=== PATIENT | male | born 1960 | race Caucasian/White ===

== ENCOUNTER → 2021-05-20 10:03 | Outpatient (BNVA) | payer OTHER, SELFPAY | PROVIDERS: Family Provider Family Medicine; PCP Family Medicine; Visit Provider Nurse Practitioner Family | DX: N39.0 Urinary tract infection, site not specified (principal); R31.9 Hematuria, unspecified | CPT/HCPCS: 81000; 87086 ==

== ENCOUNTER 2021-05-26 13:04 | Emergency (ER) | payer OTHER, SELFPAY ==
[2021-05-26 13:09] VITALS: BP 127/85; PULSE 87; RESP 18; TEMP 36.9; O2SAT 95; BMI 30.1
--- NOTE | 2021-05-26 13:38 | ED_ITS ---
Documented by User: EDITH Kirkpatrick 05/27/21 07:03 HPI - COVID General: Chief Complaint: COVID symptoms Stated Complaint: WEAKNESS VOMITING/ NAUSEA Time Seen by Provider: 05/26/21 13:25 Triage information: Has fever, cough or shortness of breath . Exposure to COVID + person last 14 days History of Present Illness: HPI Narrative: Patient is a 60-year-old male who comes to the ED with nausea vomiting diarrhea. Patient started developing symptoms back on Friday, May 22. His nausea vomiting and diarrhea really got worse on Friday. he cannot keep any food or drink down currently. Even drinking water causes nausea and emesis. He also reports having some diarrhea daily but only about 1 time a day. He feels like he is really dry and dehydrated. He has had a fever as well for the past couple days that he treats with Tylenol and/or Motrin. He also endorses a mild cough that is dry nonproductive. He endorses some very mild generalized lower abdominal pain. COVID 19 common symptoms: positive fever(s), non-productive cough, nausea, vomiting and diarrhea; negative chills, productive cough, dyspnea, fatigue, headache(s), throat pain or nasal congestion COVID 19 other sytmptoms: negative chest pain COVID Results: SARS-CoV-2 Antigen (Rapid) Negative (Negative) 05/26/21 13:58 05/26/21 Review of Systems Const: Reports: fever(s); Denies: chills or fatigue Eyes: Denies: change in vision or eye discomfort ENMT: Denies: throat pain, odynophagia, nasal discharge or nasal congestion Card: Denies: chest pain, palpitations, edema, swelling of feet/ankles, dyspnea on exertion or orthopnea Resp: Reports: non-productive cough; Denies: dyspnea or productive cough GI: Reports: abdominal pain, nausea, vomiting and diarrhea; Denies: constipation or hematochezia : Denies: flank pain, difficulty urinating, dysuria or hematuria Musc: Denies: neck pain, back pain or extremity swelling Skin/Breast: Denies: rash or new lesions Neuro: Denies: headache(s), numbness in extremities or weakness in extremities [facility] ED PFSH: Medical History Chronic epididymitis Social History Smoking and tobacco status: current every day smoker (cigars) cigars Cigars smoked per week: 21 Alcohol intake: current Alcohol intake frequency: holidays/special occasions only Marital status: Number of children: 3 Number of grandchildren: 3 Current occupational status: employed Physical Exam Const: COMMON NORMALS: no acute distress, patient oriented x3 and alert GENERAL APPEARANCE: cooperative and comfortable HENMT: COMMON NORMALS: normocephalic HEAD & SCALP: normocephalic MOUTH: moist mucous membranes abnormal Details: parched THROAT: posterior oropharynx normal and uvula midline Neck/C-Spine: COMMON NORMALS: supple GENERAL: Yes normal visual inspection Resp: COMMON NORMALS: normal respiratory effort, No retractions, No use of accessory muscles and clear to auscultation bilaterally AUSCULTATION: clear to auscultation bilaterally Cardio: COMMON NORMALS: regular rate, regular rhythm, S1 normal heart sound present, S2 normal heart sound present, No gallops present (Cardio), No clicks present (Cardio), No murmurs present (Cardio) and Peripheral pulses 2+ throughout RATE: regular rate RHYTHM: regular rhythm HEART SOUNDS: S1 normal heart sound present and S2 normal heart sound present PERIPHERAL PULSES: Peripheral pulses 2+ throughout GI: COMMON NORMALS: Normal to inspection, nondistended, normoactive bowel sounds present, Soft to palpation and no masses PALPATION: Yes Soft to palpation and Yes Tenderness to palpation present (GI) (Generalized bilateral lower abdominal tenderness) Details: LLQ and RLQ : COMMON NORMALS: Yes no CVA tenderness BLADDER/KIDNEY EXAM: Yes no CVA tenderness Back/Pelvis: COMMON NORMALS: no CVA tenderness Extremity: COMMON NORMALS: normal to inspection Neuro: COMMON NORMALS: patient oriented x3 and moves all extremities SENSORIUM/ORIENTATION: Yes alert Skin: GENERAL SKIN EXAM: dry skin Course Vital Signs: Vital signs: Vital Signs Temperature 98.4 F 05/26/21 13:09 Pulse Rate 85 05/26/21 18:59 Respiratory Rate 17 05/26/21 18:59 Blood Pressure 130/80 05/26/21 18:59 Pulse Oximetry 97 05/26/21 18:59 MDM - COVID Lab Data: Attestation: I reviewed the patient's lab results. Labs: Lab Results 05/26/21 05/26/21 05/26/21 Range/Units 13:50 13:56 13:56 WBC 9.9 (4.0-10.0) 10^3/ uL RBC 5.58 H (4.1-5.3) 10^6/u L Hgb 15.6 (11.7-16.6) g/dL Hct 48.7 (42.0-52.0) % MCV 87.3 (80-94) fL MCH 28.0 (28.0-34.0) pg MCHC 32.0 (30.0-36.0) g/dL RDW 13.9 (12.1-15.1) % Plt Count 221 (130-400) 10^3/c mm MPV 12.0 H (7.4-10.4) fL Neut % (Auto) 74.6 % Lymph % (Auto) 18.2 % [place] % (Auto) 5.7 % Eos % (Auto) 0.4 % Baso % (Auto) 0.6 % Neut # (Auto) 7.40 (1.8-7.7) 10^3/u L Lymph # (Auto) 1.8 (0.8-4.8) 10^3/u L [place] # (Auto) 0.6 (0.2-0.9) 10^3/u L Eos # (Auto) 0.0 (0.0-0.8) 10^3/u L Baso # (Auto) 0.1 (0.0-0.1) 10^3/u L Nucleated RBC % (a uto) 0 % Nucleated RBCs # 0.0 /100WBC Sodium 133 L (136-145) mmol/L Potassium 4.4 (3.5-5.1) mmol/L Chloride 97 L (98-107) mmol/L Carbon Dioxide 24 (22-29) mmol/L Anion Gap 16.4 (5-19) BUN 13 (8-23) mg/dL Creatinine 1.3 H (0.7-1.2) mg/dL GFR Calculation 56.1 L (90-130) mL/min Glucose 101 (65-115) mg/dL Calculated Osmolal ity 276 L (285-295) mOsm/k g Lactic Acid 1.6 (0.5-2.2) mmol/L Calcium 9.1 (8.5-10.5) mg/dL Total Bilirubin 0.4 (0.15-1.2) mg/dL AST 38 (0-40) U/L ALT 52 H (0-41) U/L Alkaline Phosphata se 99 (40-130) IU/L Total Protein 7.4 (6.6-8.7) g/dL Albumin 3.8 (3.5-5.2) g/dL Globulin 3.6 (1.3-4.6) g/dL Lipase 18 (13-60) U/L Urine Color (Yellow) Urine Appearance (CLEAR) Urine pH (5-7) Ur Specific Gravit y (1.005-1.030) Urine Protein (Negative) Urine Glucose (UA) (Normal) Urine Ketones (Negative) Urine Blood (Negative) Urine Nitrate (Negative) Urine Bilirubin (Negative) Urine Urobilinogen (Negative) mg/dL Ur Leukocyte Yvonne ase (Negative) Urine RBC (0-2) /hpf Urine WBC (0-5) /hpf Ur Squamous Epith Cells (0-5) /hpf Amorphous Sediment Urine Bacteria (NONE) /hpf SARS-CoV-2 Ag (Rap id) (Negative) 05/26/21 05/26/21 Range/Units 13:58 15:28 WBC (4.0-10.0) 10^3/ uL RBC (4.1-5.3) 10^6/u L Hgb (11.7-16.6) g/dL Hct (42.0-52.0) % MCV (80-94) fL MCH (28.0-34.0) pg MCHC (30.0-36.0) g/dL RDW (12.1-15.1) % Plt Count (130-400) 10^3/c mm MPV (7.4-10.4) fL Neut % (Auto) % Lymph % (Auto) % [place]ville % (Auto) % Eos % (Auto) % Baso % (Auto) % Neut # (Auto) (1.8-7.7) 10^3/u L Lymph # (Auto) (0.8-4.8) 10^3/u L [place] # (Auto) (0.2-0.9) 10^3/u L Eos # (Auto) (0.0-0.8) 10^3/u L Baso # (Auto) (0.0-0.1) 10^3/u L Nucleated RBC % (a uto) % Nucleated RBCs # /100WBC Sodium (136-145) mmol/L Potassium (3.5-5.1) mmol/L Chloride (98-107) mmol/L Carbon Dioxide (22-29) mmol/L Anion Gap (5-19) BUN (8-23) mg/dL Creatinine (0.7-1.2) mg/dL GFR Calculation (90-130) mL/min Glucose (65-115) mg/dL Calculated Osmolal ity (285-295) mOsm/k g Lactic Acid (0.5-2.2) mmol/L Calcium (8.5-10.5) mg/dL Total Bilirubin (0.15-1.2) mg/dL AST (0-40) U/L ALT (0-41) U/L Alkaline Phosphata se (40-130) IU/L Total Protein (6.6-8.7) g/dL Albumin (3.5-5.2) g/dL Globulin (1.3-4.6) g/dL Lipase (13-60) U/L Urine Color Dark yellow (Yellow) Urine Appearance Sl hazy (CLEAR) Urine pH 5 (5-7) Ur Specific Gravit y 1.025 (1.005-1.030) Urine Protein Trace (Negative) Urine Glucose (UA) Norm (Normal) Urine Ketones 1+ H (Negative) Urine Blood 3+ H (Negative) Urine Nitrate Negative (Negative) Urine Bilirubin 1+ H (Negative) Urine Urobilinogen 1 H (Negative) mg/dL Ur Leukocyte Yvonne ase Trace H (Negative) Urine RBC 50-80 H (0-2) /hpf Urine WBC 5-10 H (0-5) /hpf Ur Squamous Epith Cells None (0-5) /hpf Amorphous Sediment Not Reportable Urine Bacteria 2+ H (NONE) /hpf SARS-CoV-2 Ag (Rap id) Negative (Negative) Imaging Data: CT Abd/Pel: Attestation: I personally reviewed and interpreted this imaging study as follows: Radiologist's impression: [id number] [place] [address] CT Scan Report Signed Patient: Jonh Hager Unit #: [id number] : 1960 Age/Sex: 60 / M ADM Date: 05/26/21 Loc: ER Room/Bed: Attending Dr: Ordering Provider/Ordering MD: Anthony Mandujano Date of Service: 05/26/21 Procedure(s): CT abdomen pelvis w con* [id number] Accession Number(s): [id number] Report Number: [id number] PROCEDURE INFORMATION: Exam: CT Abdomen And Pelvis With Contrast Exam date and time: 05/26/2021 2:47 PM Age: 60 years old Clinical indication: Fever and nausea and vomiting; Patient HX: C/O n/v/d and fever; Additional info: N/v with generalized lower abdom tenderness TECHNIQUE: Imaging protocol: Computed tomography of the abdomen and pelvis with contrast. Radiation optimization: All CT scans at this facility use at least one of these dose optimization techniques: automated exposure control; mA and/or kV adjustment per patient size (includes targeted exams where dose is matched to clinical indication); or iterative reconstruction. Contrast material: VISI 320; Contrast volume: 95 ml; Contrast route: INTRAVENOUS (IV); COMPARISON: CR (CHEST, ) 05/26/2021 2:13 PM RADIATION DOSE METRICS: Total DLP (mGy-cm): 1738.99 FINDINGS: Lungs: Mild atelectasis at the left lung base. Pleural spaces: There is an oval-shaped pleural based mass-like density in the posterior aspect of the right lung base measuring 5.7 x 2.6 cm. The central portion of this density measures fluid density. There is a thin rim of soft tissue density surrounding. This may represent a necrotic pulmonary mass versus infectious process. Liver: Decreased hepatic density is noted, consistent with hepatic steatosis. Gallbladder and bile ducts: No calcified stones. No ductal dilation. Pancreas: The pancreas is normal in appearance. No pancreatic duct dilatation. Spleen: The spleen is normal in size and appearance. Adrenal glands: The adrenal glands appear within normal limits. Kidneys and ureters: 1.7 cm simple appearing right renal cyst. No solid renal masses. No hydronephrosis. Normal bilateral ureters. Stomach and bowel: The stomach is unremarkable in appearance. The small bowel is unremarkable as demonstrated. Diverticulosis of the sigmoid colon. No evidence of acute diverticulitis. Appendix: The appendix is normal in appearance. No evidence of appendicitis. Intraperitoneal space: No pneumoperitoneum. No significant fluid collection. Vasculature: Abdominal aorta is diffusely atherosclerotic. Aorta measures up to 2.6 cm in diameter. Lymph nodes: No pathologically enlarged lymph nodes are demonstrated. Urinary bladder: The urinary bladder is unremarkable in appearance. Reproductive: Unremarkable as visualized. Bones/joints: Scoliosis and degeneration of the lumbar spine. Soft tissues: The soft tissues appear unremarkable. CT/CT abdomen pelvis w con* [id number] IMPRESSION: 1. There is an oval-shaped pleural based mass-like density in the posterior aspect of the right lung base measuring 5.7 x 2.6 cm. The central portion of this density measures fluid density. There is a thin rim of soft tissue density surrounding. This may represent a necrotic pulmonary mass versus infectious process. Consider pulmonary consultation and possible aspiration. 2. Decreased hepatic density is noted, consistent with hepatic steatosis. 3. Diverticulosis of the sigmoid colon. No evidence of acute diverticulitis. 4. No acute abnormality demonstrated in the abdomen and pelvis. COMMENTS: Consistent with the [employer]'s Incidental Findings Committee white paper (J Am Kyle Radiol 2018): Any incidental renal lesion less than 1 cm or classified as too small to characterize, or any incidental cystic renal lesion characterized as simple-appearing, is likely benign. No follow-up imaging is recommended for these lesions per consensus recommendations based on imaging criteria. Radiation Dose CTDIVOL = (mGy): DLP = 1738.99 (mGy-cm) Dictated By: Bong Tubbs MD Signed By: Bong Tubbs MD Signed Date/Time: 05/26/21 1636 DD/ 1634 COVID Results: SARS-CoV-2 Antigen (Rapid) Negative (Negative) 05/26/21 13:58 05/26/21 Discharge Plan Discharge Patient Disposition: Home Clinical Impression: Gastroenteritis Condition: Stable Prescriptions: New levofloxacin 750 mg tablet 750 mg PO DAILY 14 Days Qty: 14 RF: 0 ondansetron 4 mg tablet,disintegrating 4 mg PO Q8H 4 Days Qty: 12 RF: 0 No Action sulfamethoxazole-trimethoprim 800-160 mg tablet 1 tab PO BID Qty: 60 RF: 0 ibuprofen 200 mg Tablet 200 - 400 mg PO Q4H PRN (Reason: PAIN/FEVER) RF: 0 Tylenol 325 - 650 mg PO Q4H PRN (Reason: PAIN/FEVER) RF: 0 Discharge Orders: Discharge ED (Routine); Ordered 05/26/21 Ordered By: Wood Aldana Referrals: Julia Falcon, DO [Primary Care Provider] - Discharge Diet: Advance as tolerated Discharge Activity: Resume usual activity Patient Instructions: Lump/Mass, Gastroenteritis (ED), Opioid Safety Activity Restrictions/Additional Instructions: You came in with nausea vomiting and diarrhea and have been hydrated and feels somewhat better. We have also noticed incidentally that there is a 2 inch x 1 inch mass in the bottom of your right lung that was caught on your belly CT. I attempted to admit you here however we do not have CT surgery and pulmonary available this weekend and you have refused transfer to a facility that has those specialties available. In that case since your vitals are stable we can send you home with levofloxacin. Take it once daily for 2 weeks and follow-up with CT surgery and gas fitter helper as well as primary care physician next week. I have placed a case management referral to help you get an appointment with these doctors. Return to the ER at anytime with worsening symptoms. Call us Friday if you have not heard anything about your appointments. Coding Level of Care Code ED Validation Scientist for Chg Fwd Exam Comprehensive Documented by User: Wood Aldana MD 05/26/21 18:47 HPI - COVID General: Chief Complaint: COVID symptoms Stated Complaint: WEAKNESS VOMITING/ NAUSEA Time Seen by Provider: 05/26/21 13:25 COVID Results: SARS-CoV-2 Antigen (Rapid) Negative (Negative) 05/26/21 13:58 05/26/21 PFS ED PFSH: Medical History Chronic epididymitis Social History Smoking and tobacco status: current every day smoker (cigars) cigars Cigars smoked per week: 21 Alcohol intake: current Alcohol intake frequency: holidays/special occasions only Marital status: Number of children: 3 Number of grandchildren: 3 Current occupational status: employed Course Vital Signs: Vital signs: Vital Signs Temperature 98.4 F 05/26/21 13:09 Pulse Rate 85 05/26/21 18:59 Respiratory Rate 17 05/26/21 18:59 Blood Pressure 130/80 05/26/21 18:59 Pulse Oximetry 97 05/26/21 18:59 MDM - COVID MDM Narrative: Medical decision making narrative: Took over from Mr. Mandujano. The patient presents with gastroenteritis symptoms which are not terribly concerning and he was rehydrated. Incidentally he has a 2 inch x 1 inch right lower lung mass possible abscess versus cancerous process. I discussed with the hospitalist who recommended transfer because we have no CT surgery or pulmonary available this weekend. I offered the patient transfer and he refused that saying he feels fine and wants to go home. Since his vitals are stable I feel comfortable discharging him with levofloxacin. He will return to the ER at anytime with worsening symptoms and I have placed a case management referral to get him follow-up with PCP, pulmonary, CT surgery next week. He will call Friday if he has not heard anything about his appointments. He understands there is a possibility this could be a cancerous process and earlier diagnosis and treatment leads to better prognosis. He will follow the plan accordingly Lab Data: Labs: Lab Results 05/26/21 05/26/21 05/26/21 Range/Units 13:50 13:56 13:56 WBC 9.9 (4.0-10.0) 10^3/ uL RBC 5.58 H (4.1-5.3) 10^6/u L Hgb 15.6 (11.7-16.6) g/dL Hct 48.7 (42.0-52.0) % MCV 87.3 (80-94) fL MCH 28.0 (28.0-34.0) pg MCHC 32.0 (30.0-36.0) g/dL RDW 13.9 (12.1-15.1) % Plt Count 221 (130-400) 10^3/c mm MPV 12.0 H (7.4-10.4) fL Neut % (Auto) 74.6 % Lymph % (Auto) 18.2 % [place] % (Auto) 5.7 % Eos % (Auto) 0.4 % Baso % (Auto) 0.6 % Neut # (Auto) 7.40 (1.8-7.7) 10^3/u L Lymph # (Auto) 1.8 (0.8-4.8) 10^3/u L [place] # (Auto) 0.6 (0.2-0.9) 10^3/u L Eos # (Auto) 0.0 (0.0-0.8) 10^3/u L Baso # (Auto) 0.1 (0.0-0.1) 10^3/u L Nucleated RBC % (a uto) 0 % Nucleated RBCs # 0.0 /100WBC Sodium 133 L (136-145) mmol/L Potassium 4.4 (3.5-5.1) mmol/L Chloride 97 L (98-107) mmol/L Carbon Dioxide 24 (22-29) mmol/L Anion Gap 16.4 (5-19) BUN 13 (8-23) mg/dL Creatinine 1.3 H (0.7-1.2) mg/dL GFR Calculation 56.1 L (90-130) mL/min Glucose 101 (65-115) mg/dL Calculated Osmolal ity 276 L (285-295) mOsm/k g Lactic Acid 1.6 (0.5-2.2) mmol/L Calcium 9.1 (8.5-10.5) mg/dL Total Bilirubin 0.4 (0.15-1.2) mg/dL AST 38 (0-40) U/L ALT 52 H (0-41) U/L Alkaline Phosphata se 99 (40-130) IU/L Total Protein 7.4 (6.6-8.7) g/dL Albumin 3.8 (3.5-5.2) g/dL Globulin 3.6 (1.3-4.6) g/dL Lipase 18 (13-60) U/L Urine Color (Yellow) Urine Appearance (CLEAR) Urine pH (5-7) Ur Specific Gravit y (1.005-1.030) Urine Protein (Negative) Urine Glucose (UA) (Normal) Urine Ketones (Negative) Urine Blood (Negative) Urine Nitrate (Negative) Urine Bilirubin (Negative) Urine Urobilinogen (Negative) mg/dL Ur Leukocyte Yvonne ase (Negative) Urine RBC (0-2) /hpf Urine WBC (0-5) /hpf Ur Squamous Epith Cells (0-5) /hpf Amorphous Sediment Urine Bacteria (NONE) /hpf SARS-CoV-2 Ag (Rap id) (Negative) 05/26/21 05/26/21 Range/Units 13:58 15:28 WBC (4.0-10.0) 10^3/ uL RBC (4.1-5.3) 10^6/u L Hgb (11.7-16.6) g/dL Hct (42.0-52.0) % MCV (80-94) fL MCH (28.0-34.0) pg MCHC (30.0-36.0) g/dL RDW (12.1-15.1) % Plt Count (130-400) 10^3/c mm MPV (7.4-10.4) fL Neut % (Auto) % Lymph % (Auto) % [place] % (Auto) % Eos % (Auto) % Baso % (Auto) % Neut # (Auto) (1.8-7.7) 10^3/u L Lymph # (Auto) (0.8-4.8) 10^3/u L [place] # (Auto) (0.2-0.9) 10^3/u L Eos # (Auto) (0.0-0.8) 10^3/u L Baso # (Auto) (0.0-0.1) 10^3/u L Nucleated RBC % (a uto) % Nucleated RBCs # /100WBC Sodium (136-145) mmol/L Potassium (3.5-5.1) mmol/L Chloride (98-107) mmol/L Carbon Dioxide (22-29) mmol/L Anion Gap (5-19) BUN (8-23) mg/dL Creatinine (0.7-1.2) mg/dL GFR Calculation (90-130) mL/min Glucose (65-115) mg/dL Calculated Osmolal ity (285-295) mOsm/k g Lactic Acid (0.5-2.2) mmol/L Calcium (8.5-10.5) mg/dL Total Bilirubin (0.15-1.2) mg/dL AST (0-40) U/L ALT (0-41) U/L Alkaline Phosphata se (40-130) IU/L Total Protein (6.6-8.7) g/dL Albumin (3.5-5.2) g/dL Globulin (1.3-4.6) g/dL Lipase (13-60) U/L Urine Color Dark yellow (Yellow) Urine Appearance Sl hazy (CLEAR) Urine pH 5 (5-7) Ur Specific Gravit y 1.025 (1.005-1.030) Urine Protein Trace (Negative) Urine Glucose (UA) Norm (Normal) Urine Ketones 1+ H (Negative) Urine Blood 3+ H (Negative) Urine Nitrate Negative (Negative) Urine Bilirubin 1+ H (Negative) Urine Urobilinogen 1 H (Negative) mg/dL Ur Leukocyte Yvonne ase Trace H (Negative) Urine RBC 50-80 H (0-2) /hpf Urine WBC 5-10 H (0-5) /hpf Ur Squamous Epith Cells None (0-5) /hpf Amorphous Sediment Not Reportable Urine Bacteria 2+ H (NONE) /hpf SARS-CoV-2 Ag (Rap id) Negative (Negative) COVID Results: SARS-CoV-2 Antigen (Rapid) Negative (Negative) 05/26/21 13:58 05/26/21 Discharge Plan Discharge Patient Disposition: Home Clinical Impression: Gastroenteritis Condition: Stable Prescriptions: New levofloxacin 750 mg tablet 750 mg PO DAILY 14 Days Qty: 14 RF: 0 ondansetron 4 mg tablet,disintegrating 4 mg PO Q8H 4 Days Qty: 12 RF: 0 No Action sulfamethoxazole-trimethoprim 800-160 mg tablet 1 tab PO BID Qty: 60 RF: 0 ibuprofen 200 mg Tablet 200 - 400 mg PO Q4H PRN (Reason: PAIN/FEVER) RF: 0 Tylenol 325 - 650 mg PO Q4H PRN (Reason: PAIN/FEVER) RF: 0 Discharge Orders: Discharge ED (Routine); Ordered 05/26/21 Ordered By: Wood Aldana Referrals: Julia Falcon DO [Primary Care Provider] - Discharge Diet: Advance as tolerated Discharge Activity: Resume usual activity Patient Instructions: Lump/Mass, Gastroenteritis (ED), Opioid Safety Activity Restrictions/Additional Instructions: You came in with nausea vomiting and diarrhea and have been hydrated and feels somewhat better. We have also noticed incidentally that there is a 2 inch x 1 inch mass in the bottom of your right lung that was caught on your belly CT. I attempted to admit you here however we do not have CT surgery and pulmonary available this weekend and you have refused transfer to a facility that has those specialties available. In that case since your vitals are stable we can send you home with levofloxacin. Take it once daily for 2 weeks and follow-up with CT surgery and gas fitter helper as well as primary care physician next week. I have placed a case management referral to help you get an appointment with these doctors. Return to the ER at anytime with worsening symptoms. Call us Friday if you have not heard anything about your appointments. Coding Level of Care Code ED Validation Scientist for Maximilian Fwjaycob Exam Comprehensive
--- NOTE | 2021-05-26 13:47 | XRR_ITS ---
PROCEDURE INFORMATION: Exam: XR Chest Exam date and time: 05/26/2021 1:47 PM Age: 60 years old Clinical indication: Pain; On breathing; Additional info: N/v TECHNIQUE: Imaging protocol: XR of the chest. Views: 1 view. COMPARISON: CT abdomen and pelvis dated 05/26/2021 FINDINGS: Lungs: No consolidative infiltrates demonstrated. Known mass-like pleural based 6 x 3 cm right lower lobe pulmonary density seen on CT abdomen study of 05/26/2021 is not demonstrated radiographically. Pleural spaces: No pleural effusion or pneumothorax noted. Heart/Mediastinum: No cardiomegaly. Bones/joints: Mild degenerative thoracic spine changes. XR/XR chest 1V portable [id number] IMPRESSION: 1. No consolidative infiltrates demonstrated. 2. Please see CT abdomen pelvis report from 05/26/2021 for further details.
[2021-05-26] MEDS: ondansetron 2 mg/ML SDV 2 mL 4 MG IVP (13:54)
[2021-05-26] MEDS: sodium chloride 0.9% 1,000 ML 999 ML IV ×2 (13:55→15:26)
[2021-05-26 14:00] VITALS: O2SAT 96
[2021-05-26 14:01] VITALS: BP 133/79; PULSE 90; RESP 16; O2SAT 96
[2021-05-26 14:04] LABS: Basophils # 0.1 10^3/uL (0.0-0.1); Basophils % 0.6 %; Eosinophils % 0.4 %; Hematocrit 48.7 % (42.0-52.0); Hemoglobin 15.6 g/dL (11.7-16.6); Lymphocytes # 1.8 10^3/uL (0.8-4.8); Lymphocytes % 18.2 %; Mean Corpuscular Volume 87.3 fL (80-94); Monocytes # 0.6 10^3/uL (0.2-0.9); Monocytes % 5.7 %; Neutrophils % 74.6 %; Nucleated Red Blood Cells % 0 %; Platelet Count 221 10^3/cmm (130-400); Red Blood Count 5.58 10^6/uL (4.1-5.3); Red Cell Distribution Width 13.9 % (12.1-15.1); White Blood Count 9.9 10^3/uL (4.0-10.0)
[2021-05-26 14:20] LABS: Alanine Aminotransferase 52 U/L (0-41); Albumin Level 3.8 g/dL (3.5-5.2); Alkaline Phosphatase 99 IU/L (40-130); Aspartate Amino Transferase 38 U/L (0-40); Blood Urea Nitrogen 13 mg/dL (8-23); Calcium 9.1 mg/dL (8.5-10.5); Carbon Dioxide 24 mmol/L (22-29); Chloride 97 mmol/L (98-107); Globulin 3.6 g/dL (1.3-4.6); Glomerular Filtration Rate 56.1 mL/min (90-130); Glucose 101 mg/dL (65-115); Lipase 18 U/L (13-60); Osmolality Calculated 276 mOsm/kg (285-295); Sodium 133 mmol/L (136-145); Total Bilirubin 0.4 mg/dL (0.15-1.2); Total Protein 7.4 g/dL (6.6-8.7)
[2021-05-26 14:26] LABS: SARS Covid-2 Antigen Negative (Negative)
[2021-05-26 14:34] LABS: Anion Gap 16.4 (5-19); Potassium 4.4 mmol/L (3.5-5.1)
--- NOTE | 2021-05-26 14:47 | CTR_ITS ---
PROCEDURE INFORMATION: Exam: CT Abdomen And Pelvis With Contrast Exam date and time: 05/26/2021 2:47 PM Age: 60 years old Clinical indication: Fever and nausea and vomiting; Patient HX: C/O n/v/d and fever; Additional info: N/v with generalized lower abdom tenderness TECHNIQUE: Imaging protocol: Computed tomography of the abdomen and pelvis with contrast. Radiation optimization: All CT scans at this facility use at least one of these dose optimization techniques: automated exposure control; mA and/or kV adjustment per patient size (includes targeted exams where dose is matched to clinical indication); or iterative reconstruction. Contrast material: VISI 320; Contrast volume: 95 ml; Contrast route: INTRAVENOUS (IV); COMPARISON: CR (CHEST, ) 05/26/2021 2:13 PM RADIATION DOSE METRICS: Total DLP (mGy-cm): 1738.99 FINDINGS: Lungs: Mild atelectasis at the left lung base. Pleural spaces: There is an oval-shaped pleural based mass-like density in the posterior aspect of the right lung base measuring 5.7 x 2.6 cm. The central portion of this density measures fluid density. There is a thin rim of soft tissue density surrounding. This may represent a necrotic pulmonary mass versus infectious process. Liver: Decreased hepatic density is noted, consistent with hepatic steatosis. Gallbladder and bile ducts: No calcified stones. No ductal dilation. Pancreas: The pancreas is normal in appearance. No pancreatic duct dilatation. Spleen: The spleen is normal in size and appearance. Adrenal glands: The adrenal glands appear within normal limits. Kidneys and ureters: 1.7 cm simple appearing right renal cyst. No solid renal masses. No hydronephrosis. Normal bilateral ureters. Stomach and bowel: The stomach is unremarkable in appearance. The small bowel is unremarkable as demonstrated. Diverticulosis of the sigmoid colon. No evidence of acute diverticulitis. Appendix: The appendix is normal in appearance. No evidence of appendicitis. Intraperitoneal space: No pneumoperitoneum. No significant fluid collection. Vasculature: Abdominal aorta is diffusely atherosclerotic. Aorta measures up to 2.6 cm in diameter. Lymph nodes: No pathologically enlarged lymph nodes are demonstrated. Urinary bladder: The urinary bladder is unremarkable in appearance. Reproductive: Unremarkable as visualized. Bones/joints: Scoliosis and degeneration of the lumbar spine. Soft tissues: The soft tissues appear unremarkable. CT/CT abdomen pelvis w con* [id number] IMPRESSION: 1. There is an oval-shaped pleural based mass-like density in the posterior aspect of the right lung base measuring 5.7 x 2.6 cm. The central portion of this density measures fluid density. There is a thin rim of soft tissue density surrounding. This may represent a necrotic pulmonary mass versus infectious process. Consider pulmonary consultation and possible aspiration. 2. Decreased hepatic density is noted, consistent with hepatic steatosis. 3. Diverticulosis of the sigmoid colon. No evidence of acute diverticulitis. 4. No acute abnormality demonstrated in the abdomen and pelvis. COMMENTS: Consistent with the [employer]'s Incidental Findings Committee white paper (J Am Kyle Radiol 2018): Any incidental renal lesion less than 1 cm or classified as too small to characterize, or any incidental cystic renal lesion characterized as simple-appearing, is likely benign. No follow-up imaging is recommended for these lesions per consensus recommendations based on imaging criteria. Radiation Dose CTDIVOL = (mGy): DLP = 1738.99 (mGy-cm)
[2021-05-26 15:40] LABS: Bilirubin Urine 1+ (Negative); Blood Urine 3+ (Negative); Glucose Urine UA Norm (Normal); Ketones Urine 1+ (Negative); Nitrate Urine Negative (Negative); Protein Urine Trace (Negative); Specific Gravity, Urine 1.025 (1.005-1.030); Urine Appearance SL Hazy (CLEAR); Urine Color Dark Yellow (Yellow); Urobilinogen Urine 1 mg/dL (Negative); pH Urine 5 (5-7)
[2021-05-26 15:41] LABS: Leukocyte Esterase Urine Trace (Negative)
[2021-05-26 15:46] LABS: RBC Urine 50-80 /hpf (0-2)
[2021-05-26 15:47] LABS: Add Urine Culture? Yes; Bacteria Urine 2+ /hpf
[2021-05-26] MEDS: iodixanol 320 mg/mL 100mL Btl IV (15:54)
[2021-05-26] MEDS: metoclopramide 5 mg/mL SDV 2 mL 10 MG IVP (17:51)
[2021-05-26] MEDS: morphine 4 mg/mL SDV 1 mL IVP (17:51)
[2021-05-26 17:55] VITALS: BP 126/83; PULSE 82; RESP 15; O2SAT 95
[2021-05-26 17:56] LABS: Lactic Sepsis W/Reflex 1.6 mmol/L (0.5-2.2)
[2021-05-26 18:59] VITALS: BP 130/80; PULSE 85; RESP 17; O2SAT 97
--- NOTE | 2021-05-29 14:56 | DCPLANNER ---
manager telecom had message to schedule a follow up appointment for patient with pulmonology. manager telecom called [facility], spoke with Miranda, gave clinic patients information. A follow up appointment was scheduled for Friday, May 30, 2021 at 12:[address] Panchal. manager telecom called patients and gave patients the appointment information.
--- NOTE | 2021-07-12 11:34 | DCPLANNER ---
mouna had a follow up appointment scheduled for 05.30.21 with [facility] - patient did attend appointment.
== END 2021-05-26 19:02 | disposition home or self-care (01) ==
PROVIDERS: Physician Assistant; Emergency Provider Family Medicine; PCP Family Medicine
DX: K52.9 Noninfective gastroenteritis and colitis, unspecified (principal); F17.210 Nicotine dependence, cigarettes, uncomplicated; Z20.822 Contact with and (suspected) exposure to COVID-19
CPT/HCPCS: 71045; 74177; 80053; 81001; 83605; 83690; 85025; 87086; 87426; 96361; 96374; 96375; 99284; J2270; J2405; J2765; J7030; Q9967

== ENCOUNTER 2021-06-21 10:54 | Outpatient (CLI) | payer OTHER, SELFPAY ==
--- NOTE | 2021-06-21 11:30 | CT_ITS ---
WS: [id number] Exam: CT chest w con* [id number] Date/Time of Exam: 06/21/2021 11:16 AM Reason For Exam: right lower lung lesion DLP: 970.[address] scans at [facility] use at least one of these dose optimization techniques: automat ed exposure control; mA and/or kV adjustment per patient size (includes targeted exams where dose is matched to clinical indication); or iterative reconstruction. CT scan of the chest with contrast. . Comparison made with abdominal CT scan performed 05/26/2021. A 5.7 x 2.6 cm ovoid masslike density is seen in the posterior basal segment of the right lower lobe. This is a fluid density mass with a rim of soft tissue. This shows no change since previous abdomina l CT scan performed 05/26/2021. There were no other masses in the lungs. The lungs are otherwise clear and fully expanded. Subcentimeter mediastinal lymph nodes are identified. The thoracic aorta is treeso l in caliber. The airway is patent. Normal thyroid tissue. The central pulmonary arteries are clear. Mild subcarinal lymphadenopathy with subcentimeter short axis nodes. No pleural or pericardial effusi on. Small benign-appearing fatty replaced bilateral axillary nodes. No bony or chest wall abnormaliti es. CT sections the upper abdomen demonstrate hepatic steatosis. CT/CT chest w con* [id number] IMPRESSION: 1. 5.7 x 2.6 cm ovoid cystic mass in the posterior basal segment of the right l ower lobe. No change since prior study. 2. Mild mediastinal lymphadenopathy with subcentimeter short axis lymph nodes. This is probably reactive.
[2021-06-21] MEDS: iodixanol 320 mg/mL 100mL Btl IV (11:35)
== END 2021-06-21 10:55 | disposition home or self-care (01) ==
PROVIDERS: PCP Family Medicine; Visit Provider Internal Medicine Pulmonary Disease
DX: J85.2 Abscess of lung without pneumonia (principal)
CPT/HCPCS: 71260; Q9967

== ENCOUNTER → 2025-03-03 09:20 | Outpatient (BNVA) | payer MEDICARE, SELFPAY | PROVIDERS: PCP Family Medicine; Referring Provider Family Medicine; Visit Provider Orthopaedic Surgery | DX: M89.8X2 Other specified disorders of bone, upper arm (principal); M75.22 Bicipital tendinitis, left shoulder | CPT/HCPCS: 73060; 99204 ==

== ENCOUNTER 2025-03-04 14:43 | Outpatient (CLI) | payer MEDICARE, SELFPAY ==
--- NOTE | 2025-03-04 15:15 | MRR_ITS ---
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 Distal bicep tear; Additional info: Distal bisep tear TECHNIQUE: Imaging protocol: Magnetic resonance imaging of the left upper extremity without contrast. Exam focused on the elbow. COMPARISON: [place] [id number] 03/03/2025 9:22 AM FINDINGS: Bones/joints: Mild elbow effusion. Ulnar (medial) collateral ligament: Unremarkable. No tear. Radial collateral ligament of the elbow: Unremarkable. No tear. Annular ligament of the radius: Unremarkable. No tear. Tendon of the biceps brachii: The biceps tendon is no longer visualized in the field of view appears to be retracted with the torn edge up to 12 cm proximal to the radial tubercle (series 1201 image 6). Moderate-extensive edema along the course of the biceps in the antecubital fossa. Tendon of the brachialis: Unremarkable. No tear. Triceps tendon: Unremarkable. No tear. Common flexor tendon: Moderate tendinosis of the common flexor tendon possibly with low-grade superimposed intrasubstance tear. Common extensor tendon: Partial thickness intermediate grade intrasubstance tear of the common extensor tendon of the lateral epicondyle. Soft tissues: Moderate soft tissue edema overlying the common flexor attachment to the medial epicondyle. MR/MR elbow LT wo con* [id number] IMPRESSION: 1. Torn and retracted biceps tendon into the distal arm. Extensive soft tissue edema at the antecubital fossa. 2. Intermediate grade partial-thickness tear of the common extensor origin. 3. Mild tendinosis/low-grade tear of the common flexor origin. 4. No acute osseous abnormality. Mild elbow effusion.
== END 2025-03-04 14:44 | disposition home or self-care (01) ==
LOC: RAD 14:45
PROVIDERS: PCP Family Medicine; Visit Provider Orthopaedic Surgery
DX: M75.22 Bicipital tendinitis, left shoulder (principal); S46.212A Strain of muscle, fascia and tendon of other parts of biceps, left arm, initial encounter; S46.812A Strain of other muscles, fascia and tendons at shoulder and upper arm level, left arm, initial encounter; X50.0XXA Overexertion from strenuous movement or load, initial encounter; R93.6 Abnormal findings on diagnostic imaging of limbs; M67.824 Other specified disorders of tendon, left elbow
CPT/HCPCS: 73221

== ENCOUNTER → 2025-03-10 10:03 | Outpatient (BNVA) | payer MEDICARE, SELFPAY | PROVIDERS: PCP Family Medicine; Visit Provider Orthopaedic Surgery | DX: S46.212D Strain of muscle, fascia and tendon of other parts of biceps, left arm, subsequent encounter (principal); X58.XXXD Exposure to other specified factors, subsequent encounter | CPT/HCPCS: 99213 ==

== ENCOUNTER 2025-03-16 08:52 | Day surgery (SDC) | payer MEDICARE, SELFPAY ==
[2025-03-16] VITALS (11 sets, daily range): BP systolic 109–136; BP diastolic 75–92; PULSE 56–67; RESP 10–24; TEMP 36.1–36.4; O2SAT 93–100; BMI 30.2
[2025-03-16] MEDS: sodium chloride 0.9% 1,000 ML 30 ML IV (09:25)
--- NOTE | 2025-03-16 09:34 | P.ANESASSM_ITS ---
Pre-Anesthetic Assessment Height/Weight: Height 5 ft 10 in Weight 211 lb Temp Pulse Resp BP Pulse Ox O2 Del Method 97.6 F 67 17 136/89 97 Room Air 03/16/25 09:16 03/16/25 09:16 03/16/25 09:16 03/16/25 09:16 03/16/25 09:16 03/16/25 09:16 Preop Diagnosis: Biceps tendon rupture Operation Date: 03/16/25 10:40 Proposed Procedures p LEFT Distal Bicep Tendon Repair(Left) - Luis Felipe Ashley MD Was Beta Lucia taken within 24 hours: N/A Was Clonidine taken within 24 hours: N/A Last intake: Intake Last Liquid Date 03/15/25 Last Liquid Time 21:00 Last Solid Date 03/15/25 Last Solid Time 21:00 Social No alcohol and No tobacco Exam alert, oriented x 3, clear to auscultation bilaterally and regular rate & rhythm Airway Submandibular: within normal limits Cervical ROM: within normal limits Mallampati: Class II Dentition: full Comments: Comments: rogers Anesthetic Plan ASA status: 2 Anesthesia: General Other: No prior issues with anesthesia NPO since yesterday evening Smokes cigars Denies any cardiac issues Very active individual, METs greater than 4 Plan for general anesthesia with preop nerve block Medications/Allergies Home Medications ?Medication ?Instructions ?Recorded ?Confirmed ?Last Taken ?Type Tylenol 325 - 650 mg PO Q4H PRN PAIN /FEVER 05/26/21 03/16/25 Unknown History ibuprofen 200 mg tablet 200 - 400 mg PO Q4H PRN PAIN /FEVER 05/26/21 03/16/25 05/25/21 History Allergies Allergy/AdvReac Type Severity Reaction Status Date / Time No Known Allergies Allergy Verified 03/16/25 09:15 Current Medications Generic Name Dose Route Start Last Admin Trade Name Freq PRN Reason Stop Dose Admin Sodium Chloride 1,000 mls @ 30 mls/hr 03/16/25 09:15 03/16/25 09:25 Sodium Chloride 0.9% IV 03/17/25 09:14 30 mls/hr .Q24H LALITA Administration PFSH Anesthesia Medical History Chronic epididymitis Social History Smoking and tobacco/nicotine status: current every day tobacco/nicotine user cigars Cigars smoked per week: 21 Years smoked cigars: 8 Second hand smoke exposure: Yes Alcohol intake: current Alcohol intake frequency: holidays/special occasions only Substance/Drug Use: never Lives independently: Yes Household members: spouse Marital status: Number of children: 3 Number of grandchildren: 3 Current occupational status: employed Do you think of yourself as: Straight/Heterosexual Current gender identity: Male Data Anesthesia Cardiac Studies: No Data to Display
--- NOTE | 2025-03-16 09:50 | W.PM.OPSUD ---
Surgery/Procedure H&P Update DATE OF PROCEDURE: March 16, 2025 DATE H&P PERFORMED: 03/10/25 H&P UPDATE INFORMATION: I have reviewed H&P completed within last 30 days, I have examined patient prior to procedure, No changes to prior documentation, H&P to be scanned into chart and Risks and benefits of the procedure reviewed PREOP DIAGNOSIS: Biceps tendon rupture PRIMARY INDICATION FOR PROCEDURE: Rupture distal biceps tendon left arm PLANNED PROCEDURE: Operation Date: 03/16/25 10:40 Proposed Procedures p LEFT Distal Bicep Tendon Repair(Left) - Luis Felipe Ashley MD
--- NOTE | 2025-03-16 10:24 | ANES.PROC ---
Anesthesia Procedures Procedure/Date: 03/16/25 Nerve Block ^: Nerve Block 1: Main Anesthesia: other Time Out Performed: Yes Consent: requested by attending/covering physician and from patient Nerve block location: supraclavicular Anesthesia monitors applied: pulse oximetry, EKG, BP cuff and oxygen Nerve block position: supine Anesthetic Used: ropivicaine 0.5% Amount of anesthesia used (mL): 30 Ultrasound used to: recognize landmarks Nerve Stimulator Used?: Yes Interscalene/Femoral BLK: other needle (pjunk 4inch) Injection: neg aspiration of heme Patient Tolerated Procedure: well Complications: none Additional Comments: decadron 4mg added to block
[2025-03-16] MEDS: ceFAZolin 2,000 mg SDV 2000 MG IVP (10:27)
--- NOTE | 2025-03-16 11:45 | P.OP_ITS ---
Operative Report Date of procedure: March 16, 2025 Surgeon: Luis Felipe Ashley MD Procedure: Preop diagnosis: Torn distal biceps tendon left arm Postop diagnosis: Same Procedure: Repair of distal biceps tendon rupture Surgeon: Luis Felipe Ashley MD Functional Mental Disability Teacher: ERIC Mock's assistance was necessary for this procedure for positioning patient, prepping arm and draping. Also was needed during the procedure for assistance for applying traction and for retraction. Their assistance was necessary for closure and splinting. 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 Approximately a month and a half ago he was lifting heavy object when he felt a pop or snap within his elbow/upper arm on the left side. Began having pain and problems several hours later. Stated that he attempted to continue to work but then started finding out that he could not lift things with his left arm. Initially was seen by his primary care provider who felt that he only partially injured his arm and could not continue to use it. However continued pain problems difficulties with it eventually saw myself in the orthopedic clinics. Clinical exam was consistent with biceps tendon tear distally on the left upper extremity. MRI then confirmed this. Patient was then offered surgical repair of his biceps tendon of the left arm versus conservative measures of letting it heal where it laid. He did not wish to have this option because he needs his arms for his work. He elected to have surgical repair at this time. All risk benefits treatment alternatives were discussed and he is agreeable to this at this time. Procedure: After obtaining the consent patient had upper extremity block done in the preop holding area. Patient was then taken to the operating room and while still on his gurney had his left upper extremity prepped and draped usual fashion. Arm table was placed alongside the gurney. After surgical timeout transverse incision made approximately 2 cm distal to the antecubital flexion crease over the area of the radial tubercle. Sharp dissect taken down to subcutaneous tissues electrocautery used for hemostasis. Blunt sharp dissection with Metzenbaum scissors help Clearpath all the way down to the radial tubercle. Digital dissection subcutaneously of the arm was I was unable to reach the stump of the biceps tendon. Therefore at this time biceps tendon was palpated and a longitudinal incision was made just medial to this on the arm and with blunt dissection biceps tendon could be grasped with an Allis clamp. It was found to be scarred onto itself. This was dissected apart and the length of the biceps tendon was regained. End of the biceps tendon was freshened with Metzenbaum scissors. A stay suture of #2 Ethibond was placed through this. Arthrex biceps button system was used for anchoring this tendon. A whipstitch of FiberWire was placed up through the tendon with the ends coming out the very distal portion. This is then placed through the toggle. With the arm supinated and clearing all soft tissues away from the radial tubercle a single drill hole was placed from anterior to posterior through the proximal radius. Toggle button was then passed down through to the opposite cortices. This was disengaged from the applicator. Pulling traction on the sutures brought the tendon down and cinched this up. Arm was cycled and then held in partially flexed position as sutures were tied down. 2-0 Ethibond was cut out and rem dheeraj. Wounds were washed with sterile irrigation. Subcutaneous tissue was reapproximated with 2-0 Vicryl, 4-0 Vicryl subcuticular for skin closure. Subsequently adhesive and Steri-Strips were applied over these. Wounds are cleaned and dried dressed with OpSite's. Patient was then placed in a posterior splint with his hand supinated and elbow flexed to 90 degrees. Patient was awakened and then transferred to the recovery room in stable condition
--- NOTE | 2025-03-16 12:49 | ANE.PACU2 ---
Inpatient post-anesthesia follow up: Airway intact: Yes Vital signs: Temperature 97.0 F Pulse Rate 58 Respiratory Rate 17 Blood Pressure 127/87 Pulse Oximetry 96 Oxygen Delivery Me thod Room Air Oxygen Flow Rate Fraction of Inspir ed Oxygen Hydration adequate: Yes Nausea and vomiting: No Pain level: 1
== END 2025-03-16 12:49 | disposition home or self-care (01) ==
PROVIDERS: PCP Family Medicine; Visit Provider Orthopaedic Surgery
PROC: (CPT 24341; principal; 2025-03-16 10:30)
DX: S46.212A Strain of muscle, fascia and tendon of other parts of biceps, left arm, initial encounter (principal); F17.290 Nicotine dependence, other tobacco product, uncomplicated; X50.0XXA Overexertion from strenuous movement or load, initial encounter
CPT/HCPCS: 24342; J0690; J1100; J2405; J2704; J3010; J7030

== ENCOUNTER 2025-03-22 10:53 | Emergency (ER) | payer MEDICARE, SELFPAY ==
[2025-03-22 10:59] VITALS: BP 120/87; PULSE 86; RESP 20; TEMP 36.4; O2SAT 95
--- NOTE | 2025-03-22 11:09 | ED_ITS ---
HPI - Extremity Problem General: Chief complaint: Extremity Injury, Upper Stated complaint: L hand swelling, 7 days post op Time Seen by Provider: 03/22/25 10:57 Source: patient Mode of arrival: ambulatory Limitations: no limitations History of Present Illness: Patient is a very pleasant 64-year-old male here for concerns of swelling to the left hand that he began noticing 1 to 2 days ago. He states he is approximately 1 week out from a distal bicep tendon rupture repair by Dr. Ashley. He has been wearing his splint as directed. Follow-up with surgeon is not until 04/01. He feels like his pain is doing good. He is not having any pain to the hand. Can wiggle all of his digits without difficulty. MD Complaint: extremity swelling (L hand) Onset (ago): day(s) Location: left and upper extremity Radiation: none Relieving factors: nothing Exacerbating factors: nothing Associated symptoms: Reports no associated symptoms; Deny chest pain or fever(s) Context: recent surgery/procedure Related Data Home Medications ?Medication ?Instructions ?Recorded ?Confirmed ibuprofen 200 mg tablet 200 - 400 mg PO Q4H PRN PAIN /FEVER 05/26/21 03/22/25 Previous Rx's ?Medication ?Instructions ?Recorded hydrocodone 5 mg-acetaminophen 325 1 tab PO Q6H PRN pa in #30 tabs 03/16/25 mg tablet Allergies Allergy/AdvReac Type Severity Reaction Status Date / Time No Known Allergies Allergy Verified 03/16/25 09:15 Review of Systems Const: Denies: fever(s), chills, body aches, fatigue or malaise Card: Denies: chest pain Resp: Denies: dyspnea Musc: Reports: extremity swelling (dorsal L hand); Denies: extremity pain, joint pain, joint swelling, joint redness, joint warmth or joint stiffness Neuro: Denies: numbness in extremities or sensory changes PFSH ED PFSH: Medical History Chronic epididymitis Social History Smoking and tobacco/nicotine status: current every day tobacco/nicotine user cigars Cigars smoked per week: 21 Years smoked cigars: 8 Second hand smoke exposure: Yes Alcohol intake: current Alcohol intake frequency: holidays/special occasions only Substance/Drug Use: never Lives independently: Yes Household members: spouse Marital status: Number of children: 3 Number of grandchildren: 3 Current occupational status: employed Do you think of yourself as: Straight/Heterosexual Current gender identity: Male Physical Exam Const: COMMON NORMALS: no acute distress, average body habitus, no limitations, healthy appearing, alert and well nourished Extremity: COMMON NORMALS: capillary refill normal GENERAL: Yes normal exam except as noted OTHER: pt has edema to dorsum of L hand; can wiggle all digits without pain; splint/dressing was removed for complete visualization; his surgical site/elbow appears very well; no obvious edema, there is no erythema/warmth/discharge; forearm is normal in appearance and soft/non-edematous; distal pulses/cap refill/sensation are all normal Neuro: COMMON NORMALS: moves all extremities, no focal motor deficits and no sensory deficits noted SENSORIUM/ORIENTATION: Yes alert Course Vital Signs: Vital signs: Vital Signs Temperature 97.5 F L 03/22/25 10:59 Pulse Rate 86 03/22/25 10:59 Respiratory Rate 20 H 03/22/25 10:59 Blood Pressure 120/87 03/22/25 10:59 Pulse Oximetry 95 03/22/25 10:59 Oxygen Delivery Me thod Room Air 03/22/25 10:59 MDM - Extremity (Nontraumatic) Medical Decision Making Patient's swelling is most likely secondary to gravitating edema from his recent surgery at his elbow. His extremity looks very well 1 week postop. I do not have any concerns for infection, septic arthritis, compartment syndrome, vascular concern, DVT, or any other emergent condition. Patient was placed back in his splint and plan for follow-up with his surgeon as scheduled. No radiology studies performed this visit Discharge Plan Discharge Patient Disposition: Home Clinical Impression: Edema of hand Condition: Stable Prescriptions: No Action ibuprofen 200 mg Tablet 200 - 400 mg PO Q4H PRN (Reason: PAIN/FEVER) hydrocodone-acetaminophen 5-325 mg tablet 1 tab PO Q6H PRN (Reason: pain) Qty: 30 0RF Discharge Orders: Discharge ED (Routine); Ordered 03/22/25 Ordered By: Kasey Urrutia Referrals: Julia Falcon DO [Primary Care Provider] - Activity Restrictions/Additional Instructions: As we discussed, your surgical site looks very well and I do not have any concerns at this time. The edema involving the top of your hand most likely will resolve over time. You may continue to ice and elevate the extremity. Please follow-up with your surgeon as scheduled. Print Language: Tajik Coding Level of Care Code ED Program Management Analyst for Maximilian Rothman
[2025-03-22 11:20] VITALS: BP 140/93; PULSE 91; O2SAT 97
== END 2025-03-22 11:21 | disposition home or self-care (01) ==
PROVIDERS: Emergency Provider Physician Assistant; PCP Family Medicine
DX: R60.0 Localized edema (principal); F17.290 Nicotine dependence, other tobacco product, uncomplicated
CPT/HCPCS: 99281

== ENCOUNTER 2025-04-01 09:01 | Outpatient (CLI) | payer MEDICARE, SELFPAY | END 2025-04-01 09:02 | disposition home or self-care (01) | LOC: SOT 09:02 | PROVIDERS: PCP Family Medicine; Visit Provider Orthopaedic Surgery | DX: Z46.89 Encounter for fitting and adjustment of other specified devices (principal); S46.212D Strain of muscle, fascia and tendon of other parts of biceps, left arm, subsequent encounter; X50.0XXD Overexertion from strenuous movement or load, subsequent encounter | CPT/HCPCS: 99024; L3761 ==

== ENCOUNTER → 2025-04-22 08:23 | Outpatient (BNVA) | payer MEDICARE, SELFPAY | PROVIDERS: PCP Family Medicine; Visit Provider Orthopaedic Surgery | DX: S46.212D Strain of muscle, fascia and tendon of other parts of biceps, left arm, subsequent encounter (principal); X58.XXXD Exposure to other specified factors, subsequent encounter | CPT/HCPCS: 99024 ==

== ENCOUNTER → 2025-05-17 08:03 | Outpatient (BNVA) | payer MEDICARE, SELFPAY | PROVIDERS: PCP Family Medicine; Visit Provider Orthopaedic Surgery | DX: Z98.890 Other specified postprocedural states (principal) | CPT/HCPCS: 99024 ==